=== PATIENT | female | born 1955 | race Caucasian/White ===

== ENCOUNTER 2017-02-10 20:25 | Emergency (ER) | payer OTHER, MEDICARE ==
[~2017-02-10] VITALS: Ht 170.2 cm; Wt 72.6 kg
[~2017-02-10 20:25] MED LIST: AMITRIPTYLINE H10 MG PO; ASPIRIN CHILDRE81 MG PO; ATORVASTATIN CA40 MG PO; BECAPLERMIN TOP; CYMBALTA 20 MG20 MG PO; GLUCOPHAGE1000 MG PO; LANTUS INS100 UNITS/ SC; LEVEMIR 10100 UNITS/ SC; LYRICA75 MG PO; MEROPENEM1 GM IV; METFORMIN ER500 MG PO; MIRALAX17 GM PO; MORPHINE SULFAT30 M2 PO; NATURAL IRON65 MG PO; NICODERM C14 MG/24 H TOP; NOVOLOG100 U/ML SC; PERCOCET 325 MG1 TA2 PO; PERCOCET 325 MG1 TAB PO; PRINIVIL 5MG5 MG PO; PROTONIX 40MG T40 MG PO; SENNA CON/DOCUS1 TAB PO; TIZANIDINE HCL2 MG PO; VITAMIN D400 I1 PO; VOLTAREN GEL1% TOP; [UNRECOGNIZED DRUG - OTHER] PO
[2017-02-10] MEDS ORDERED: NOVOLOG100 UNIT/2 SC (21:15)
[2017-02-10] MEDS ORDERED: GABAPENTIN600 M1 PO (21:16)
[2017-02-10] MEDS ORDERED: ESCITALOPRAM OX10 MG PO (21:16)
[2017-02-10] MEDS ORDERED: CLOPIDOGREL75 M1 PO (21:16)
[2017-02-10] MEDS ORDERED: METFORMIN HCL1000 M1 PO (21:16)
[2017-02-10] MEDS ORDERED: ATORVASTATIN CA40 M1 PO (21:16)
[2017-02-10] MEDS ORDERED: PANTOPRAZOLE SO40 M1 PO (21:16)
[2017-02-10] MEDS ORDERED: LASIX80 M1 PO (21:17)
[2017-02-10] MEDS ORDERED: TRAZODONE HCL50 M1 PO (21:17)
[2017-02-10] MEDS ORDERED: FUROSEMIDE40 M1 PO (21:17)
[2017-02-10] MEDS ORDERED: LISINOPRIL5 M1 PO (21:18)
[2017-02-10] MEDS ORDERED: GLIPIZIDE5 M2 PO (21:18)
[2017-02-10] MEDS ORDERED: ATIVAN0.5 M1 PO (21:18)
[2017-02-10] MEDS ORDERED: VITAMIN D3400 UNI1 PO (21:19)
[2017-02-10] MEDS ORDERED: MULTI-DAY VITA1 EACH PO (21:19)
[2017-02-10] MEDS ORDERED: OXYCODONE-ACET1 EACH PO (21:19)
[2017-02-10 22:02] LABS: ABSOLUTE BASOPHIL COUNT 0 /CUMM (0.0-0.2); ABSOLUTE EOSINOPHIL COUNT 0.1 /CUMM (0.0-0.7); ABSOLUTE GRANULOCYTE CT 6.8 /CUMM (1.4-6.5); ABSOLUTE LYMPH COUNT 2.5 /CUMM (1.2-3.4); ABSOLUTE MONOCYTE COUNT 0.5 /CUMM (0.10-0.60); BASOPHIL % 0.4 % (0.0-2.0); EOSINOPHIL % 0.7 % (0-5); GRANULOCYTE % 68.5 % (42.2-75.2); HEMATOCRIT 32.6 % (37-47); MEAN CORPUSCULAR HGB 30.7 PG (27.0-31.0); MEAN CORPUSCULAR HGB CONC 33.8 G/DL (33.0-37.0); MEAN CORPUSCULAR VOLUME 90.7 FL (81.0-99.0); MEAN PLATELET VOLUME 6.9 FL (7.4-10.4); PLATELET COUNT 276 /CUMM (130-400); RBC DISTRIBUTION WIDTH 22.9 % (11.5-14.5); WHITE BLOOD CELL COUNT 9.9 /CUMM (4.8-10.8)
--- NOTE | 2017-02-10 22:12 | ED GENERAL ADULT ---
History of Present Illness General Chief Complaint: General Adult Stated Complaint: PT CAN'T WALK Source: patient Exam Limitations: no limitations Vital Signs & Intake/Output Vital Signs & Intake/Output Vital Signs Date Time Temp Pulse Resp B/P B/P Pulse O2 O2 Flow FiO2 Mean Ox Delivery Rate 02/10 2321 96.8 70 18 110/58 94 Room Air 02/10 2040 97.6 66 18 105/71 97 Room Air ED Intake and Output 02/11 0000 02/10 1200 Intake Total 0 Output Total Balance 0 Intake, Oral 0 Patient 160 lb Weight Weight Reported by Patient Measurement Method Allergies Coded Allergies: NO KNOWN ALLERGIES (07/05/14) Reconcile Medications Atorvastatin Calcium 40 MG TABLET 1 TAB PO DAILY CHOLESTEROL (Reported) Cholecalciferol (Vitamin D3) (Vitamin D3) 400 UNIT TABLET 1 TAB PO DAILY SUPPLEMENT (Reported) Clopidogrel Bisulfate (Clopidogrel) 75 MG TABLET 1 TAB PO DAILY BLOOD THINNER (Reported) Escitalopram Oxalate 10 MG TABLET 1 TAB PO DAILY MENTAL HEALTH (Reported) Furosemide 40 MG TABLET 1 TAB PO DAILY DIURETIC (Reported) Furosemide (Lasix) 80 MG TABLET 1 TAB PO EOD DIURETIC (Reported) Gabapentin 600 MG TABLET 1 TAB PO TID NERVE PAIN (Reported) Glipizide 5 MG TABLET 1 TAB PO BID DM (Reported) Insulin Aspart (Novolog) 100 UNIT/ML VIAL DM (Reported) Levofloxacin (Levaquin) 750 MG TABLET 1 TAB PO DAILY uti/pna Lisinopril 5 MG TABLET 1 TAB PO DAILY BP (Reported) Lorazepam (Ativan) 0.5 MG TABLET 1 TAB PO PRN ANXIETY (Reported) Metformin HCl 1,000 MG TABLET 1 TAB PO BID DM (Reported) Multivitamin (Multi-Day Vitamins) 1 EACH TABLET 1 TAB PO DAILY SUPPLEMENT ( Reported) Oxycodone HCl/Acetaminophen (Oxycodone-Acetaminophen 5-325) 5 MG-325 MG TABLET 1 TAB PO TID PRN PAIN (Reported) Pantoprazole Sodium 40 MG TABLET.DR 1 TAB PO DAILY GI (Reported) Trazodone HCl 50 MG TABLET 1 TAB PO QPM SLEEP (Reported) Triage Note: PT TO TRIAGE WITH C/O GENERAL WEAKNESS xFEW WEEKS, PT AMBULATES WITH WALKER AT BASELINE BUT NOW HAS DIFFICULTIES W/AMBULATION, HAD TWO FALLS FEW WEEKS AGO. ALSO PT C/O R FLANK PAIN 9/10 AND DECREASED URINATION x3DAYS. PT DENIES SOB, DENIES CHEST PAIN,ABD PAIN. VSS. Triage Nurses Notes Reviewed? yes Onset: Abrupt Duration: week(s):, constant, getting worse Timing: recent history Injury Environment: home Severity: moderate, severe No Modifying Factors: none HPI: 62-year-old female comes into emergency room for further evaluation of increased weakness and inability to ambulate over the past few days. Patient reports that she has been feeling weak for the last couple weeks. Patient reports that her legs give out on her intermittently and she gets sharp pain behind her calfs. Patient reports over the last few days she has not been able to ambulate without assistance which is not normal for her. She denies any chest pain shortness of breath. Denies any abdominal pain. Denies any urinary symptoms. Patient has a history of hypertension and cholesterol diabetes. (DIANN MCKEON) Past History Travel History Traveled to [place] past 21 day No Medical History Any Pertinent Medical History? see below for history Cardiovascular: hypertension Gastrointestinal: GERD Musculoskeletal: ARTHRITIS Psychiatric: depression Endocrine: IDDM History of MRSA: Yes History of VRE: No History of CDIFF: No Pneumonia Vaccine: 07/06/14 Influenza Vaccine: 07/02/14 Surgical History Surgical History: non-contributory Psychosocial History Who do you live with Patient/Self Services at Home None What is your primary language Mosotho Tobacco Use: Current Daily Use Daily Tobacco Use Amount/Type: => 5 Cigarettes daily Family History Family History, If Any: Relation not specified for: *No pertinent family history Hx Contributory? No (DIANN MCKEON) Review of Systems Review of Systems Constitutional: Reports: see HPI. EENTM: Reports: no symptoms. Respiratory: Reports: no symptoms. Cardiovascular: Reports: no symptoms. GI: Reports: no symptoms. Genitourinary: Reports: no symptoms. Musculoskeletal: Reports: see HPI. Skin: Reports: no symptoms. Neurological/Psychological: Reports: no symptoms. Hematologic/Endocrine: Reports: no symptoms. Immunologic/Allergic: Reports: no symptoms. All Other Systems: Reviewed and Negative (DIANN MCKEON) Physical Exam Physical Exam General Appearance: alert, awake, thin Head: atraumatic, normal appearance Eyes: Bilateral: normal appearance, EOMI. Ears, Nose, Throat: normal ENT inspection, hearing grossly normal Neck: normal inspection Respiratory: normal breath sounds, no respiratory distress Cardiovascular: regular rate/rhythm Gastrointestinal: soft Extremities: swelling bilaterally, erythema and lower legs, dorsalis pedis pulses 2+, strength intact, Neurologic/Psych: awake, alert, oriented x 3, normal gait, normal mood/affect Skin: intact, normal color Core Measures ACS in differential dx? No CVA/TIA Diagnosis: No Severe Sepsis Present: No Septic Shock Present: No (ITZ DOAN,DIANN) Progress Differential Diagnoses I considered the following diagnoses in my evaluation of the patient: UTI, pneumonia, lung CA, cauda equina, muscle spasming, arthritis, Plan of Care: Orders Procedure Date/time Status Add-on Test (ER Only) 02/11 45 Active URINALYSIS 02/10 2133 Complete TROPONIN LEVEL 02/10 2133 Complete COMPREHENSIVE METABOLIC PANEL 02/10 2133 Complete CBC WITHOUT DIFFERENTIAL 02/10 2133 Complete EKG 02/10 2133 Active Laboratory Tests 02/10/17 2340: Urine Color YEL, Urine Clarity CLEAR, Urine pH 5.5, Ur Specific [place] 1.020, Urine Protein TRACE H, Urine Ketones NEG, Urine Nitrite POS H, Urine Bilirubin NEG, Urine Urobilinogen 0.2, Ur Leukocyte Esterase SMALL H, Ur Microscopic SEDIMENT EXAMINED, Urine WBC 1-3 H, Urine Bacteria MOD H, Urine Hemoglobin NEG , Urine Glucose NEG 02/10/174: Anion Gap 8, Estimated GFR 33 L, BUN/Creatinine Ratio 21.9, Glucose 107 H, Calcium 8.3 L, Total Bilirubin 0.3, AST 20, ALT 39, Alkaline Phosphatase 111, Troponin I < 0.01, Total Protein 5.9 L, Albumin 3.1 L, Globulin 2.8, Albumin/ Globulin Ratio 1.1, CBC w Diff NO MAN DIFF REQ, RBC 3.60 L, MCV 90.7, MCH 30.7, RDW 22.9 H, MPV 6.9 L, Gran % 68.5, Lymphocytes % 25.0, Monocytes % 5.4, Eosinophils % 0.7, Basophils % 0.4, Absolute Granulocytes 6.8 H, Absolute Lymphocytes 2.5, Absolute Monocytes 0.5, Absolute Eosinophils 0.1, Absolute Basophils 0, PUBS MCHC 33.8 Diagnostic Imaging: Viewed by Me: Radiology Read. Discussed w/RAD: Radiology Read. Radiology Impression: EXAM TYPE: RAD - XRY-CHEST XRAY, ONE VIEW ONLY EXAMINATION :\H\ \N\XR CHEST CLINICAL INFORMATION: Weakness and falls. COMPARISON: Chest x- ray 01/01/2015. TECHNIQUE: Frontal view of the chest was obtained. FINDINGS: The lungs are symmetrically expanded. Of note, there is coarsening of the interstitium and there are prominent interstitial lung markings, new relative to the prior examination. No dense airspace consolidation is identified and there are no pleural effusions or pneumothoraces. There are subtle nodular opacities within the right upper and right midlungs cardiomediastinal contours are stable. Soft tissues appear unremarkable. No acute osseous abnormality is identified. IMPRESSION: Prominent interstitial lung markings with associated coarsening of the interstitium, new relative to the prior examination. This finding is nonspecific. An atypical infectious process cannot be excluded. There are subtle nodular opacities within the right upper and right midlungs. Consider correlation with chest CT. DICTATED BY: HENRY QUINTERO MD DATE/TIME DICTATED:2245, SERVICE DATE: 02/10/17 EXAM TYPE: RAD - XRY-AP PELVIS EXAMINATION: XR PELVIS CLINICAL INFORMATION: Weakness and falls. COMPARISON: None. TECHNIQUE: AP view of the pelvis. FINDINGS: The bones and soft tissues appear unremarkable. No acute pelvic fractures are identified. The sacral arcuate lines are intact. There are multiple calcified pelvic phleboliths. Sacroiliac and hip joints are normal. Pubic symphysis is normal. No abnormal soft tissue calcifications. Vascular stents are present in the expected region of the right common iliac artery as well as the left common iliac artery. IMPRESSION: No grossly displaced pelvic fractures. DICTATED BY: HENRY QUINTERO MD DATE/TIME DICTATED:02/10/172243 PROTECTIVE SIGNAL OPERATIONS SUPERVISOR:SANCHEZ DATE/TIME TRANSCRIBED:02/10/172243 Initial ED EKG: normal intervals, normal p-waves, normal QRS complex, normal sinus rhythm, rate (66) (DIANN MCKEON) Departure Departure Disposition: HOME OR SELF CARE Condition: Stable Clinical Impression Primary Impression: UTI (urinary tract infection) Secondary Impressions: General weakness, Lung nodules Referrals: APRIL ADAME MD (PCP/Family) Additional Instructions: Follow-up with your primary care doctor. Return if any concerns worsening symptoms. You aren't going to require an outpatient CT scan of the chest. Take Levaquin as prescribed. Please go over all results of today's visit with your primary care doctor. Contact your primary care doctor to let them know you were here in the emergency room. There may be nonspecific findings which may not be related to your visit today here in the emergency room but may require further evaluation and chronic monitoring by your primary care doctor. If you had a laceration today the chance of foreign body always remains. You should follow-up with your primary care doctor for recheck in 3-5 days for a wound check. If you had an x-ray done there is a chance that a fracture could have been missed on initial read and you should follow-up with your primary care doctor for repeat x-rays if symptoms persist. If your blood pressure was elevated here in the emergency room please have rechecked by her primary care doctor within the next 48 hours by your primary care doctor. If you were prescribed a narcotic here in the emergency room or any type of controlled substances you're not allowed to drive while taking this medication or operate any type of heavy machinery. Narcotics can make you feel lightheaded dizziness nausea and can cause constipation. You may need to pear picker a stool softener. Thank you for choosing [facility] emergency room. Please return to the emergency room immediately if you have any other concerns worsening of symptoms. Departure Forms: Customer Survey General Discharge Information Prescriptions: Current Visit Scripts Levofloxacin (Levaquin) 1 TAB PO DAILY #5 TAB Comments Patient able to ambulate here in the emergency room with no difficulty without assistance. Patient appears to have a mild UTI. Patient also has his abnormal lung findings were has no cough or congestion indicate pneumonia. Patient covered with Levaquin for double coverage of urine as well as lung. Results discussed with the patient. Patient would rather not stay here in the emergency room. Creatinine is chronically elevated. Patient needs follow-up with her primary care doctor. Return if any other concerns. Patient understands and agrees a plan of care. Reevaluated multiple times. Patient wants to go home. Case discussed with Dr. arnold. (DIANN MCKEON) PA/TOLL TRANSMISSION WORKER Co-Sign Statement Statement: ED Attending supervision documentation- x I saw and evaluated the patient. I have also reviewed all the pertinent lab results and diagnostic results. I agree with the findings and the plan of care as documented in the PA's/TOLL TRANSMISSION WORKER's documentation. [] I have reviewed the ED Record and agree with the PA's/TOLL TRANSMISSION WORKER's documentation. [] Additions or exceptions (if any) to the PAs/TOLL TRANSMISSION WORKER's note and plan are summarized below: [] (LEDA VÁZQUEZ,RAMONA) Critical Care Note Critical Care Note Critical Care Time: non-applicable (DIANN MCKEON) ED Attending Observation Initial Observation Note: I have seen and personally examined BEAR PEDERSON on 02/11/17 at 0047. I agree with the current emergency department documentation. The disposition (admission or discharge) is uncertain at this time, she needs a period of observation for the following reason(s): The ED Nurse caring for this patient has been personally informed as to what the patient is being observed for. (DIANN MCKEON)
--- NOTE | 2017-02-10 22:50 | RADIOLOGY REPORT ---
EXAMINATION: XR PELVIS CLINICAL INFORMATION: Weakness and falls. COMPARISON: None. TECHNIQUE: AP view of the pelvis. FINDINGS: The bones and soft tissues appear unremarkable. No acute pelvic fractures are identified. The sacral arcuate lines are intact. There are multiple calcified pelvic phleboliths. Sacroiliac and hip joints are normal. Pubic symphysis is normal. No abnormal soft tissue calcifications. Vascular stents are present in the expected region of the right common iliac artery as well as the left common iliac artery. IMPRESSION: No grossly displaced pelvic fractures.
--- NOTE | 2017-02-10 22:52 | RADIOLOGY REPORT ---
EXAMINATION:\H\ \N\XR CHEST CLINICAL INFORMATION: Weakness and falls. COMPARISON: Chest x-ray 01/01/2015. TECHNIQUE: Frontal view of the chest was obtained. FINDINGS: The lungs are symmetrically expanded. Of note, there is coarsening of the interstitium and there are prominent interstitial lung markings, new relative to the prior examination. No dense airspace consolidation is identified and there are no pleural effusions or pneumothoraces. There are subtle nodular opacities within the right upper and right midlungs cardiomediastinal contours are stable. Soft tissues appear unremarkable. No acute osseous abnormality is identified. IMPRESSION: Prominent interstitial lung markings with associated coarsening of the interstitium, new relative to the prior examination. This finding is nonspecific. An atypical infectious process cannot be excluded. There are subtle nodular opacities within the right upper and right midlungs. Consider correlation with chest CT.
[2017-02-10 23:21] VITALS: BP 110/58
[2017-02-11] MEDS ORDERED: LEVAQUIN750 M1 PO (00:45)
== END 2017-02-11 00:49 ==
LOC: ERH 20:25
PROVIDERS: Physician Assistant Medical
DX: N39.0 Urinary tract infection, site not specified (principal); R91.1 Solitary pulmonary nodule
CPT/HCPCS: 72170; 81001; 87086; 93005; 93010